=== PATIENT | male | born 1955 | race Caucasian/White ===

== ENCOUNTER 2016-10-27 02:17 | Emergency (ER) | payer MEDICARE ==
--- NOTE | 2016-10-27 02:41 | ERPHSYRPT ---
- History of Present Illness Time Seen by Provider: 10/27/16 02:19 Source: patient, family () Patient Subjective Stated Complaint: pt states that he lost his footing about an hour and d/t rright-sided weakness from prior stroke, fell onto his buttocks and then back onto the occiput of his head - is concerned because INR is high d/t doxycycline course for cough/cold - pt does not want to be here et refuses to wear a gown - denies loc, dizziness, or vomiting Triage Nursing Assessment: ambulatory to treatment area - steady gait - moves all extremiteis with unequal strength: weakness on the right side with right sided facial drooping per normal, according to . alert/oriented - pleasant affect -. skin dusky per normal, according to -. resps spontaneous - easy - non-labored Physician History: CC: fall Hx: 61 y/o male patient with chronic renal failure on home peritoneal dialysis. He fell on cords tonite and hit his head. No LOC. No neck or back pain. He takes coumadin and recent INR was 5. He has hx of CHD with VSD and Esenmeinger physiology and has chronic hypoxemia and polycythemia vera. No N/T/W. Occurred: this evening Reason for Fall: tripped Loss of Consciousness: no loss of consciousness Allergies/Adverse Reactions: Sulfa (Sulfonamide Antibiotics) [Sulfa(Sulfonamide Antibiotics)] Allergy (Mild, Verified 10/27/16 02:36) unknown digoxin Allergy (Verified 10/27/16 02:36) vancomycin Allergy (Verified 10/27/16 02:36) azithromycin [From Zithromax Z-Vladimir] Adverse Reaction (Verified 10/27/16 02:36) Rapid Heart Beat increase risk of a-fib levofloxacin [From Levaquin] Adverse Reaction (Verified 10/27/16 02:36) Rapid Heart Beat increase risk of a-fib Home Medications: Allopurinol 100 mg [Zyloprim 100 mg] 100 mg PO DAILY 10/27/16 [History] Amiodarone HCl 200 mg PO BID 10/27/16 [History] Aspirin 81 mg PO DAILY 10/27/16 [History] Atorvastatin Calcium 20 mg PO DAILY 10/27/16 [History] Bosentan [Tracleer] 125 mg PO BID 10/27/16 [History] Docusate Sodium [Stool Softener] 100 mg PO BID 10/27/16 [History] Doxycycline Hyclate 100 mg [Vibramycin 100 MG] 100 mg PO BID 10/27/16 [ History] Famotidine 20 mg [Pepcid 20 MG] 20 mg PO HS 10/27/16 [History] Lactulose [Lactulose 20 gm/30Ml Ud Cup] 20 gm PO Q12H PRN PRN 10/27/16 [ History] Linaclotide [Linzess] 145 mcg PO Q12H PRN PRN 10/27/16 [History] Paricalcitol 1 mcg PO DAILY 10/27/16 [History] Phenobarb 32.4 mg [Phenobarbital 32.4 mg] 32.4 mg PO TID 10/27/16 [History ] Polyethylene Glycol 3350 [Miralax] 17 gm PO BID 10/27/16 [History] Potassium Chloride 10 Meq Tab* [Klor Con 10 MEQ] 20 meq PO DAILY 10/27/16 [ History] Sevelamer Carbonate [Renvela] 800 mg PO TID 10/27/16 [History] Warfarin Sodium 1 mg [Coumadin 1 MG] 1 mg PO DAILY 10/27/16 [History] Hx Tetanus, Diphtheria Vaccination/Date Given: Yes Hx Influenza Vaccination/Date Given: Yes Hx Pneumococcal Vaccination/Date Given: Yes Immunizations Up to Date: Yes - Review of Systems Constitutional: No Symptoms Respiratory: No Dyspnea Cardiac: No Chest Pain, No Syncope Abdominal/Gastrointestinal: No Abdominal Pain, No Nausea, No Vomiting Musculoskeletal: No Back Pain, No Neck Pain Neurological: No Focal Weakness, No Headache, No Parasthesia All Other Systems: Reviewed and Negative - Past Medical History Pertinent Past Medical History: Yes Neurological History: Seizures ENT History: Macular Degeneration Cardiac History: Arrhythmia Respiratory History: Other Endocrine Medical History: Other Musculoskeletal History: Arthritis GI Medical History: No Pertinent History History: Renal Disease Psycho-Social History: No Pertinent History Male Reproductive Disorders: No Pertinent History Other Medical History: 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 eisenmengers syndrome. hypercalcemia - Past Surgical History Past Surgical History: Yes Neuro Surgical History: Other Cardiac: No Pertinent History, Cardiac Catheterization, Other Respiratory: No Pertinent History Gastrointestinal: No Pertinent History Genitourinary: No Pertinent History, Other Musculoskeletal: No Pertinent History Male Surgical History: No Pertinent History Other Surgical History: brain abcess. cardioversion. fistula right arm - Social History Smoking Status: Former smoker Exposure to second hand smoke: No Drug Use: none Patient Lives Alone: No - Nursing Vital Signs Nursing Vital Signs: Initial Vital Signs Temperature 97.4 F Pulse Rate 66 Respiratory Rate 16 Blood Pressure 83/45 Pain Intensity 0 - [place] Coma Score Best Eye Response ([place]): (4) open spontaneously Best Verbal Response ([place]): (5) oriented Best Motor Response (Tina): (6) obeys commands [place] Total: 15 - Physical Exam General Appearance: alert Head Injury: no evidence of injury Eye Exam: PERRL/EOMI ENT Exam: airway nml Neck Exam: supple, No mid-line tenderness Respiratory/Chest Exam: normal breath sounds Cardiovascular Exam: regular rate/rhythm, murmur (loud holosystolic) Back Exam: No vertebral tenderness Extremity Exam: normal inspection, other (fistula right forearm), No tenderness Neurologic Exam: alert, oriented x 3, cooperative, sensation nml, No motor deficits Skin Exam: warm, dry SpO2 Interpretation: hypoxic (chronic) SpO2: 78 Oxygen Delivery: Room Air - Course Nursing assessment & vital signs reviewed: Yes - CT Exams head CT Interpretation: Tele-radiologist Report (no acute), No/Intracranial Hemorrhag Ordered Tests: Active Orders 24 hr Category Date Time Status IV Insertion STAT Care 10/27/16 02:24 Active HEAD WITHOUT CONTRAST [CT] Stat Exams 10/27/16 02:36 Taken BMP Stat Lab 10/27/16 02:40 Completed CBC W DIFF Stat Lab 10/27/16 02:40 Completed Manual Differential NC Stat Lab 10/27/16 02:40 Completed PROTIME WITH INR Stat Lab 10/27/16 02:40 Completed Lab/Rad Data: Laboratory Result Diagrams 10/27/16 02:40 10/27/16 02:40 Laboratory Results 10/27/16 10/27/16 10/27/16 Range/Units 02:40 02:40 02:40 WBC 8.6 (4.0-10.5) K/mm3 RBC 6.94 H* (4.1-5.6) M/mm3 Hgb 21.1 H (12.5-18.0) gm/dl Hct 67.0 H (42-50) % MCV 96.5 (78-100) fl MCH 30.4 (26-32) pg MCHC 31.5 L (32-36) g/dl RDW 19.3 H (11.5-14.0) % Plt Count 40 L (150-450) K/mm3 MPV 10.9 H (6-9.5) fl INR 3.83 H (0.8-3.0) Sodium 134 L (136-145) mEq/L Potassium 5.3 H (3.5-5.1) mEq/L Chloride 101 (98-107) mEq/L Carbon Dioxide 22.7 (21-32) mEq/L Anion Gap 16.0 H (5-15) MEQ/L BUN 68 H (9-20) mg/dL Creatinine 9.14 H (0.55-1.30) mg/dl Estimated GFR 6 ML/MIN Glucose 85 (70-110) MG/DL Calcium 8.8 (8.5-10.1) mg/dL - Progress Progress Note: 10/27/16 02:41 Will check INR and K as did not complete dialysis run tonite. Will check CT head to rule out ICH. 10/27/16 03:47 He will hold K suppl. He is contacting dialysis nurse in AM and will resume dialysis. Will release with instr. Counseled pt/family regarding: lab results, diagnosis, need for follow-up, rad results - Departure Time of Disposition: 03:47 Departure Disposition: Home Clinical Impression: Warfarin anticoagulation, chronic thrombocytopenia Chronic renal failure Qualifiers: Chronic kidney disease stage: stage 5 Qualified Code(s): N18.5 - Chronic kidney disease, stage 5 Closed head injury Qualifiers: Encounter type: initial encounter Qualified Code(s): S09.90XA - Unspecified injury of head, initial encounter Condition: Stable Critical Care Time: No Referrals: VIELKA FOSS [Primary Care Provider] - Instructions: Prevent Falls, Closed Head Injury Additional Instructions: HEAD INJURY 1. A responsible person should observe the patient at home for 24 hours. 2. If any of the following signs or symptoms are observed or occur, call your family physician or return to the emergency department: A. Behavior change B. Persistent vomiting C. Unequal pupils D. Increasing drowsiness E. Difficulty in arousing the patient F. Severe headache G. Lump on head increasing in size Return for problems or concerns. Hold potassium supplement and contact dialysis nurse in AM.
[2016-10-27 02:51] LABS: Mean Cell Volume 96.5 fl (78-100); Mean Corpuscular Hemoglobin 30.4 pg (26-32); Mean Platelet Volume 10.9 fl (6-9.5); Platelet Count 40 K/mm3 (150-450); Red Cell Distribution Width 19.3 % (11.5-14.0); White Blood Count 8.6 K/mm3 (4.0-10.5)
[2016-10-27 03:00] LABS: INR 3.83 (0.8-3.0); PROTIME 41.3 SECONDS (8.83-12.87)
[2016-10-27 03:01] LABS: Red Blood Count 6.94 M/mm3 (4.1-5.6)
[2016-10-27 03:04] LABS: Carbon Dioxide 22.7 mEq/L (21-32); Potassium 5.3 mEq/L (3.5-5.1)
[2016-10-27 04:00] VITALS: BP 88/50; PULSE 70; O2SAT 74
[2016-10-27 04:01] LABS: ANISOCYTOSIS 1+; Platelet Estimate DECREASED (NORMAL); Total Cells Counted 100
--- NOTE | 2016-10-27 09:11 | XRAY ---
Indication: Head injury following fall. Coumadin therapy. Multiple contiguous axial images obtained through the head without contrast. 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 No acute intracranial hemorrhage, abnormal extra-axial fluid collection, or mass effect. Fourth ventricle is midline without hydrocephalus. Remaining bony calvarium intact. Visualized paranasal sinuses and mastoid air cells are clear. Impression: Nonacute senile brain with chronic findings. Comment: Preliminary interpretation was made by [facility]. No discrepancy. CTDI is 50.26
== END 2016-10-27 03:59 | disposition home or self-care (01) ==
LOC: ED 02:17
DX: S00.83XA Contusion of other part of head, initial encounter (principal); W01.0XXA Fall on same level from slipping, tripping and stumbling without subsequent striking against object, initial encounter; N18.5 Chronic kidney disease, stage 5; D69.49 Other primary thrombocytopenia; Z79.01 Long term (current) use of anticoagulants; Z79.899 Other long term (current) drug therapy; Z99.2 Dependence on renal dialysis
CPT/HCPCS: 36415; 70450; 80048; 85025; 85610; 99283

== ENCOUNTER 2016-11-30 06:07 | Emergency (ER) | payer MEDICARE, SELFPAY ==
[2016-11-30 06:20] VITALS: O2SAT 84
[2016-11-30] MEDS ORDERED: Sodium Chloride 0.9% 1000 ML 1,000 ML IV SCH (06:30)
[2016-11-30] MEDS ORDERED: Sodium Chloride 0.9% 1000 ML 1,000 ML ONE (06:30)
--- NOTE | 2016-11-30 06:33 | ERPHSYRPT ---
- History of Present Illness Source: patient Exam Limitations: no limitations Patient Subjective Stated Complaint: Pt sts abd pain 03/30 since Saturday. Sts diarrhea, vomiting x 3-4 days. sts pts blood pressure is usually 70's over 30's. Sts SPO2 is generally in 70's. Triage Nursing Assessment: Pt alert, oriented, appears drowsy, lethargic. Skin dusky/w/d, resps non-labored. Pt able to transfer self from wheelchair to bed with assist of 1. Timing/Duration: day(s) (4 days) Severity: moderate Modifying Factors: Improves With: nothing. Worsens With: eating, immobilization , medication, movement, acetaminophen, ibuprofen Associated Symptoms: nausea, vomiting, abdominal pain (lower abdominal pain), weakness, No shortness of breath, No heartburn, No diaphoresis, No cough, No chills, No chest pain, No fever, No headaches, No loss of appetite, No malaise, No rash, No syncope, No seizure Hx Tetanus, Diphtheria Vaccination/Date Given: Yes Hx Influenza Vaccination/Date Given: Yes Hx Pneumococcal Vaccination/Date Given: No <BETTIE JACKSON - Last Filed: 11/30/16 07:09> <SHAYAN ELLIOTT - Last Filed: 11/30/16 12:34> - History of Present Illness Time Seen by Provider: 11/30/16 06:19 Physician History: This is a 61-year-old white male with history of renal failure on CAPD, cyanotic congenital heart disease, polycythemia, pseudo-truncal arteriosus, Eisenmenger's syndrome hyperkalemia Patient is brought in by his family with complaint of the patient is weak he is having lower abdominal pain has been vomiting symptoms off and on since Saturday, 4 days ago No fever Past medical history includes seizures, macular degeneration, arrhythmia, arthritis, renal disease, cyanotic congenital heart disease, polycythemia, pseudo-truncal arteriosus, hypothyroid adenoma, Eisenmenger's syndrome, hypercalcemia past surgical history includes cardiac catheter, brain abscess, cardioversion, fistula in the right arm. the patient's states the patient usually runs blood pressures inthe 70s and 80s systolic and runs of pulse ox around 70s (BETTIE JACKSON) Allergies/Adverse Reactions: Sulfa (Sulfonamide Antibiotics) [Sulfa(Sulfonamide Antibiotics)] Allergy (Mild, Verified 11/30/16 06:09) unknown digoxin Allergy (Verified 11/30/16 06:09) vancomycin Allergy (Verified 11/30/16 06:09) azithromycin [From Zithromax Z-Vladimir] Adverse Reaction (Verified 11/30/16 06:09) Rapid Heart Beat increase risk of a-fib levofloxacin [From Levaquin] Adverse Reaction (Verified 11/30/16 06:09) Rapid Heart Beat increase risk of a-fib Home Medications: Allopurinol 100 mg [Zyloprim 100 mg] 100 mg PO DAILY 10/27/16 [History] Amiodarone HCl 200 mg PO BID 10/27/16 [History] Aspirin 81 mg PO DAILY 10/27/16 [History] Atorvastatin Calcium 20 mg PO DAILY 10/27/16 [History] Bosentan [Tracleer] 125 mg PO BID 10/27/16 [History] Docusate Sodium [Stool Softener] 100 mg PO BID 10/27/16 [History] Famotidine 20 mg [Pepcid 20 MG] 20 mg PO HS 10/27/16 [History] Lactulose [Lactulose 20 gm/30Ml Ud Cup] 20 gm PO Q12H PRN PRN 10/27/16 [ History] Linaclotide [Linzess] 145 mcg PO Q12H PRN PRN 10/27/16 [History] Paricalcitol 1 mcg PO DAILY 10/27/16 [History] Phenobarb 32.4 mg [Phenobarbital 32.4 mg] 32.4 mg PO TID 10/27/16 [History ] Polyethylene Glycol 3350 [Miralax] 17 gm PO BID 10/27/16 [History] Potassium Chloride 10 Meq Tab* [Klor Con 10 MEQ] 20 meq PO DAILY 10/27/16 [ History] Sevelamer Carbonate [Renvela] 800 mg PO TID 10/27/16 [History] Warfarin Sodium 1 mg [Coumadin 1 MG] 1 mg PO DAILY 10/27/16 [History] Cinacalcet HCl [Sensipar] 30 mg PO DAILY 11/30/16 [History] Warfarin Sodium 1 mg [Coumadin 1 MG] 0.5 mg PO 11/30/16 [History] - Review of Systems Constitutional: Weakness, No Fever, No Chills, No Fatigue, No Lethargy, No Malaise, No Night Sweats, No Weight Loss Eyes: No Symptoms Ears, Nose, & Throat: Epistaxis (bleeding from the nares off and on this week), No Ear Pain, No Ear Discharge, No Hearing Changes, No Tinnitus, No Nose Pain, No Nose Congestion, No Nose Discharge, No Sinus Drainage, No Mouth Pain, No Mouth Swelling Respiratory: No Cough, No Dyspnea Cardiac: No Chest Pain, No Edema, No Palpitations, No Syncope, No Orthopnea, No PND, No Other Abdominal/Gastrointestinal: Abdominal Pain, Nausea, Vomiting, Diarrhea, No Constipation, No Hematemesis, No Hematochezia, No Melena, No Dysphagia, No Appetite Changes Genitourinary Symptoms: No Dysuria Musculoskeletal: No Back Pain, No Neck Pain Skin: No Rash Neurological: No Dizziness, No Focal Weakness, No Sensory Changes Psychological: No Symptoms Endocrine: No Symptoms All Other Systems: Reviewed and Negative <BETTIE JACKSON - Last Filed: 11/30/16 07:09> - Past Medical History Pertinent Past Medical History: Yes Neurological History: Seizures ENT History: Macular Degeneration Cardiac History: Arrhythmia Respiratory History: Other Endocrine Medical History: Other Musculoskeletal History: Arthritis GI Medical History: No Pertinent History History: Renal Disease Psycho-Social History: No Pertinent History Male Reproductive Disorders: No Pertinent History Other Medical History: 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 eisenmengers syndrome. hypercalcemia - Past Surgical History Past Surgical History: Yes Neuro Surgical History: Other Cardiac: No Pertinent History, Cardiac Catheterization, Other Respiratory: No Pertinent History Gastrointestinal: No Pertinent History Genitourinary: No Pertinent History, Other Musculoskeletal: No Pertinent History Male Surgical History: No Pertinent History Other Surgical History: brain abcess. cardioversion. fistula right arm - Social History Smoking Status: Never smoker Exposure to second hand smoke: No Drug Use: none Patient Lives Alone: No <BETTIE JACKSON - Last Filed: 11/30/16 07:09> - Physical Exam General Appearance: other (well-developed white male dusky in color, weak in appearance) Eye Exam: PERRL/EOMI, eyes nml inspection Ears, Nose, Throat Exam: TMs normal, pharynx normal, moist mucous membranes, other (small amount of blood in naris) Neck Exam: normal inspection, non-tender, supple, full range of motion Respiratory Exam: normal breath sounds, lungs clear, No respiratory distress Cardiovascular Exam: regular rate/rhythm, normal heart sounds, normal peripheral pulses Gastrointestinal/Abdomen Exam: soft, normal bowel sounds, tenderness ( suprapubic tenderness), other (patient with dialysis catheter in his abdomen ( CAPD)), No distention, No mass Back Exam: normal inspection, normal range of motion, No CVA tenderness, No vertebral tenderness Extremity Exam: normal inspection, normal range of motion, pelvis stable Neurologic Exam: alert, oriented x 3, cooperative, normal mood/affect, nml cerebellar function, nml station & gait, sensation nml, No motor deficits Skin Exam: other (skin is chronically dusky in color) SpO2 Interpretation: borderline oxygenation (84% patient chronically runs in the 80,s) SpO2: 84 Oxygen Delivery: Room Air <BETTIE JACKSON - Last Filed: 11/30/16 07:09> - Course Nursing assessment & vital signs reviewed: Yes EKG Interpreted by Me: RATE (67 bpm), Sinus Rhythm, Left Hawley Deviation, Other ( EKG sinus rhythm with 1st degree av block, with pvc, 67 bpm, rule outright bundle branch block no acute st or t wave changes as compared to 2014) <BETTIE JACKSON - Last Filed: 11/30/16 07:09> - Radiology Exams Chest X-ray Interpretation: Discussed w/ radiologist (ENLARGED HEART, STABLE CALCIFIED AORTIC ARCH WITH ASCENDIG AORTIC ANEURYSM) - CT Exams Abdomen/Pelvis CT Interpretation: Discussed w/radiologist (NEW SMALL ABDOMINAL AND PELVIC FREE FLUID, THAT MAY OR NOT BE TO PERONEAL DIALYSIS THERAPY, NEW SPLENIC WEDGE SHAPE HYPODENSITY, RULE OUT INFARCT), Other (STABLE ATROPHIC KIDNEYS, GALLBLADDER SLUDGE, EXTENSIVE ARTERIOSCLEROTIC) <SHAYAN ELLIOTT - Last Filed: 11/30/16 12:34> Ordered Tests: Active Orders 24 hr Category Date Time Status Rig Welder STAT Care 11/30/16 07:28 Active EKG-ER Only STAT Care 11/30/16 06:25 Active IV Insertion STAT Care 11/30/16 06:25 Active ABDOMEN AND PELVIS W/0 CONTRAS [CT] Stat Exams 11/30/16 07:57 Completed CHEST 1 VIEW (PORTABLE) Stat Exams 11/30/16 06:26 Completed AMYLASE Stat Lab 11/30/16 06:30 Completed BLOOD CULTURE Stat Lab 11/30/16 06:45 Received CBC W DIFF Stat Lab 11/30/16 06:30 Completed CMP Stat Lab 11/30/16 06:30 Completed LIPASE Stat Lab 11/30/16 06:30 Completed Manual Differential NC Stat Lab 11/30/16 06:30 Completed PHENOBARBITOL Stat Lab 11/30/16 06:30 Completed PROTIME WITH INR Stat Lab 11/30/16 06:30 Completed PTT Stat Lab 11/30/16 06:30 Completed Medication Summary Generic Name Dose Route Start Last Admin Trade Name Freq PRN Reason Stop Dose Admin Sodium Chloride 1,000 mls @ 50 mls/hr 11/30/16 06:30 11/30/16 06:36 Sodium Chloride 0.9% 1000 Ml IV 12/30/16 06:29 50 mls/hr .Q20H MAYA Administration Discontinued Medications Generic Name Dose Route Start Last Admin Trade Name Freq PRN Reason Stop Dose Admin Acetaminophen 500 mg 11/30/16 11:20 11/30/16 11:23 Tylenol Extra Strength 500 Mg PO 11/30/16 11:21 500 mg STAT STA Administration Acetaminophen Confirm 11/30/16 11:23 Tylenol Extra Strength 500 Mg Administered 11/30/16 11:24 Dose 500 mg .ROUTE .STK-MED ONE Fentanyl Citrate 25 mcg 11/30/16 11:27 11/30/16 11:32 Sublimaze 100 Mcg/2 Ml IV 11/30/16 11:28 25 mcg STAT ONE Administration Fentanyl Citrate Confirm 11/30/16 11:30 Sublimaze 100 Mcg/2 Ml Administered 11/30/16 11:31 Dose 100 mcg .ROUTE .STK-MED ONE Sodium Chloride Confirm 11/30/16 06:30 Sodium Chloride 0.9% 1000 Ml Administered 11/30/16 06:31 Dose 1,000 mls @ ud .ROUTE .STK-MED ONE Ondansetron HCl 4 mg 11/30/16 11:27 11/30/16 11:32 Zofran 4 Mg/2 Ml Vial IV 11/30/16 11:28 4 mg STAT ONE Administration Ondansetron HCl Confirm 11/30/16 11:30 Zofran 4 Mg/2 Ml Vial Administered 11/30/16 11:31 Dose 4 mg .ROUTE .[employer] ONE Phytonadione 10 mg 11/30/16 08:53 11/30/16 09:08 Vitamin K 10 Mg/Ml SQ 11/30/16 08:54 10 mg STAT ONE Administration Phytonadione Confirm 11/30/16 09:07 Vitamin K 10 Mg/Ml Administered 11/30/16 09:08 Dose 10 mg .ROUTE .[employer] ONE Lab/Rad Data: Laboratory Result Diagrams 11/30/16 06:30 11/30/16 06:30 Laboratory Results 11/30/16 11/30/16 11/30/16 Range/Units 06:30 06:30 06:30 WBC (4.0-10.5) K/mm3 RBC (4.1-5.6) M/mm3 Hgb (12.5-18.0) gm/dl Hct (42-50) % MCV (78-100) fl MCH (26-32) pg MCHC (32-36) g/dl RDW (11.5-14.0) % Plt Count (150-450) K/mm3 Segmented Neutrophils (36.-66.) % Band Neutrophils (0.0-2.0) % Lymphocytes (Manual) (24-44) % Monocytes (Manual) (0.0-12.0) % Platelet Estimate (NORMAL) Spherocytes Rouleaux INR > 10.00 H* (0.8-3.0) PTT (24.1-36.1) SECONDS Sodium 135 L (136-145) mEq/L Potassium 4.3 (3.5-5.1) mEq/L Chloride 96 L (98-107) mEq/L Carbon Dioxide 20.8 L (21-32) mEq/L Anion Gap 22.6 H (5-15) MEQ/L BUN 58 H (9-20) mg/dL Creatinine 8.17 H (0.55-1.30) mg/dl Estimated GFR 7 ML/MIN Glucose 110 (70-110) MG/DL Calcium 8.2 L (8.5-10.1) mg/dL Total Bilirubin 0.6 (0.2-1.0) mg/dL AST 31 (15-37) U/L ALT 7 L (12-78) U/L Alkaline Phosphatase 130 H (46-116) U/L Serum Total Protein 5.5 L (6.4-8.2) gm/dL Albumin 1.8 L (3.4-5.0) g/dL Amylase 29 (25-115) U/L Lipase 197 (73-393) U/L Phenobarbital 15.1 (15-40) ug/ml 11/30/16 Range/Units 06:30 WBC 9.4 (4.0-10.5) K/mm3 RBC 6.65 H* (4.1-5.6) M/mm3 Hgb 20.7 H (12.5-18.0) gm/dl Hct 65.5 H (42-50) % MCV 98.5 (78-100) fl MCH 31.1 (26-32) pg MCHC 31.6 L (32-36) g/dl RDW 23.1 H (11.5-14.0) % Plt Count 42 L (150-450) K/mm3 Segmented Neutrophils 82 H (36.-66.) % Band Neutrophils 5 H (0.0-2.0) % Lymphocytes (Manual) 11 L (24-44) % Monocytes (Manual) 2 (0.0-12.0) % Platelet Estimate DECREASED (NORMAL) Spherocytes 1+ Rouleaux 2+ INR (0.8-3.0) PTT (24.1-36.1) SECONDS Sodium (136-145) mEq/L Potassium (3.5-5.1) mEq/L Chloride (98-107) mEq/L Carbon Dioxide (21-32) mEq/L Anion Gap (5-15) MEQ/L BUN (9-20) mg/dL Creatinine (0.55-1.30) mg/dl Estimated GFR ML/MIN Glucose (70-110) MG/DL Calcium (8.5-10.1) mg/dL Total Bilirubin (0.2-1.0) mg/dL AST (15-37) U/L ALT (12-78) U/L Alkaline Phosphatase (46-116) U/L Serum Total Protein (6.4-8.2) gm/dL Albumin (3.4-5.0) g/dL Amylase (25-115) U/L Lipase (73-393) U/L Phenobarbital (15-40) ug/ml - Progress Progress: unchanged <BETTIE JACKSON - Last Filed: 11/30/16 07:09> - Progress Discussed with Dr.: Other (DISCUSSED WITH PATIENT'S CONTROL TECHNICIAN DR MERRILL, [facility], MIREYA LOOMIS ACCEPTS FOR DR BAIRD AT 0940 [facility]) <SHAYAN ELLIOTT - Last Filed: 11/30/16 12:34> - Progress Progress Note: 11/30/16 06:35 This is a 61-year-old white male with history of cyanotic congenital heart disease, arrhythmia, arthritis, renal disease, polycythemia, pseudo-truncal arteriosus, hypothyroid adenoma, Eisenmenger's syndrome and hypercalcemia. He is brought by his states that the patient has been having lower abdominal pain nausea vomiting and diarrhea symptoms for 4 days. Patient has dusky skin on appearance this apparently is chronic for him however he is tender in the suprapubic and lower abdominal region patient does use CAPD. Patient has had intermittent epistaxis in his nose he is on Coumadin. Will go ahead and obtain appropriate laboratory studies including CBC, CMP, PT PTT, blood cultures chest x-ray and EKG. 11/30/16 07:08 The patient's care will be transferred to Dr Elliott secondary to shift change . The patient has been discussed with Dr. Elliott (BETTIE JACKSON) <BETTIE JACKSON - Last Filed: 11/30/16 07:09> - Departure Time of Disposition: 12:25 Departure Disposition: Transfer Critical Care Time: No <SHAYAN ELLIOTT - Last Filed: 11/30/16 12:34> - Departure Clinical Impression: GENERALIZED WEAKNESS, INTRACTABLE EMESIS/DIARRHEA, Eisenmenger's syndrome due to congenital ventricular septal defect Condition: Stable Referrals: VIELKA FOSS [Primary Care Provider] -
[2016-11-30 07:00] LABS: Mean Cell Volume 98.5 fl (78-100); Mean Corpuscular Hemoglobin 31.1 pg (26-32); Platelet Count 42 K/mm3 (150-450); Red Blood Count 6.65 M/mm3 (4.1-5.6); Red Cell Distribution Width 23.1 % (11.5-14.0); White Blood Count 9.4 K/mm3 (4.0-10.5)
[2016-11-30 07:45] LABS: PROTIME 152.8 SECONDS (8.83-12.87)
[2016-11-30 07:51] LABS: ALBUMIN 1.8 g/dL (3.4-5.0); ANION GAP 22.6 MEQ/L (5-15); BILIRUBIN,TOTAL 0.6 mg/dL (0.2-1.0); Carbon Dioxide 20.8 mEq/L (21-32); Total Protein 5.5 gm/dL (6.4-8.2)
[2016-11-30 07:53] LABS: INR > 10.00 (0.8-3.0); Potassium 4.3 mEq/L (3.5-5.1)
[2016-11-30] MEDS ORDERED: Vitamin K 10 MG/ML SQ ONE (08:53)
--- NOTE | 2016-11-30 08:54 | XRAY ---
Indication: Abdominal pain and emesis. Renal failure with dialysis therapy. Multiple contiguous axial images obtained through the abdomen and pelvis without contrast as ordered. Comparison: April 19, 2015. Lung bases again demonstrates cardiomegaly with new bibasilar dependent atelectasis. Stable left posterior gutter calcified granuloma. Again there is peritoneal dialysis catheter with the distal catheter now coiled in the left lower quadrant. New small free fluid in the pelvis and lesser degree in the abdomen that may or may not be related to dialysis therapy. No walled off fluid collection or free air. Spleen demonstrates new 2.0 x 3.5 cm peripheral wedge shaped hypodensity, possible infarct. Noncontrasted stomach and bowel loops appear nonobstructed. Gallbladder again demonstrates intraluminal sludge without gallstones or abnormal biliary distention. Both kidneys remain atrophic without suspicious renal mass or hydronephrosis. Remaining liver, pancreas, adrenal glands, ureters, and bladder appear unremarkable for noncontrast exam. There remains extensive heavy scattered vascular calcifications including renal arteries. Osseous structures intact again with mild degenerative changes throughout the spine and multilevel thoracolumbar Schmorl nodes. Impression: 1. New small abdominal and pelvic free fluid that may or may not be related to peroneal dialysis therapy. No walled off fluid collection or free air. 2. New splenic wedge shape hypodensity. Rule out infarct. 3. Stable atrophic kidneys, gallbladder sludge, extensive arteriosclerotic calcifications, and cardiomegaly. CT DI 17.64
--- NOTE | 2016-11-30 09:04 | XRAY ---
Indication: Weakness and vomiting. Comparison: October 13, 2015. Portable chest underinflated today accentuating the cardiopulmonary structures. Stable calcific granulomas. No focal infiltrate, consolidation, or large effusion. Heart remains enlarged. Stable calcified aortic arch with ascending aortic aneurysm. Bony thorax intact again with osteopenia and degenerative changes. Impression: Stable nonacute underinflated chest with chronic features.
[2016-11-30] MEDS ORDERED: Vitamin K 10 MG/ML ONE (09:07)
[2016-11-30 09:13] LABS: BAND 5 % (0.0-2.0); Total Cells Counted 100
[2016-11-30 09:17] LABS: Spherocyte 1+
[2016-11-30 09:18] LABS: Platelet Estimate DECREASED (NORMAL)
[2016-11-30] MEDS ORDERED: TYLENOL EXTRA STRENGTH 500 MG PO STA (11:20)
[2016-11-30] MEDS ORDERED: TYLENOL EXTRA STRENGTH 500 MG ONE (11:23)
[2016-11-30] MEDS ORDERED: Zofran 4 MG/2 ML VIAL IV ONE (11:27)
[2016-11-30] MEDS ORDERED: SUBLIMAZE 100 MCG/2 ML IV ONE (11:27)
[2016-11-30] MEDS ORDERED: SUBLIMAZE 100 MCG/2 ML ONE (11:30)
[2016-11-30] MEDS ORDERED: Zofran 4 MG/2 ML VIAL ONE (11:30)
[2016-11-30 12:34] VITALS: BP 78/38; PULSE 88
== END 2016-11-30 12:34 | disposition short-term general hospital (02) ==
LOC: ED 06:07
DX: R53.1 Weakness (principal); R11.2 Nausea with vomiting, unspecified; R19.7 Diarrhea, unspecified; I27.89 Other specified pulmonary heart diseases; Z79.01 Long term (current) use of anticoagulants; Z79.899 Other long term (current) drug therapy; R10.30 Lower abdominal pain, unspecified
CPT/HCPCS: 36000; 36415; 71010; 74176; 80053; 80184; 82150; 83690; 85025; 85610; 85730; 87040; 93005; 93041; 96360; 96361; 96372; 96374; 96375; 99285; J2405; J3010; J3430